=== PATIENT | female | born 1965 | race Caucasian/White ===

== ENCOUNTER 2025-01-12 23:36 | Emergency (ER) | payer BC ==
[2025-01-12 23:51] VITALS: BP 156/92; PULSE 87; RESP 18; TEMP 98.4; BMI 28.3
[2025-01-13] MEDS ORDERED: METHOCARBAMOL 500 MG TABLET ONE (00:10)
[2025-01-13] MEDS ORDERED: ACETAMINOPHEN 325 MG TABLET (FP) ONE (00:11)
[2025-01-13] MEDS: ACETAMINOPHEN 325 MG TABLET (FP) PO ONE (00:14)
[2025-01-13] MEDS: METHOCARBAMOL 500 MG TABLET PO ONE (00:14)
[2025-01-13] MEDS ORDERED: AZITHROMYCIN 500 MG TABLET ONE (01:47)
[2025-01-13] MEDS: AZITHROMYCIN 500 MG TABLET PO ONE (01:56)
== END 2025-01-13 01:56 | disposition home or self-care (01) ==
LOC: FER 23:36
DX: J18.9 Pneumonia, unspecified organism (principal)
CPT/HCPCS: 71046-TC-FY; 93005; 99284-25